=== PATIENT | female | born 1945 | race Caucasian/White ===

== ENCOUNTER 2022-01-12 13:06 | Inpatient (IN) | payer MEDICARE, MEDICAID ==
[~2022-01-12] VITALS: Ht 182.9 cm; Wt 61.2 kg
[2022-01-12] MEDS ORDERED: SODIUM CHLORIDE 0.9% 1000ML BAG (SEPSIS BOLUS) IV ONE (13:45)
[2022-01-12 13:51] LABS: BASOPHILS % 0.2 % (0.0-2.0); HEMATOCRIT. 33.4 % (36.0-48.0); LYMPHOCYTES % 20.6 % (20.0-50.0); MEAN CORPUSCULAR HEMOGLOBIN 33.2 pg (28.0-32.0); MEAN CORPUSCULAR VOLUME 100.3 fL (81.0-99.0); MEAN PLATELET VOLUME 8.5 fl (7.4-10.4); MONOCYTES % 7.7 % (2.0-8.0); NEUTROPHILS % 71.5 % (40.0-76.0); PLATELET 234 x1000/uL (130-400); RED BLOOD CELL COUNT 3.33 mill/uL (4.2-5.4); RED CELL DISTRIBUTION WIDTH 15.1 % (11.6-14.6)
[2022-01-12 14:02] LABS: INR 1.1; PROTHROMBIN TIME 11.4 sec (9.6-11.0)
[2022-01-12 14:11] LABS: CHLORIDE 93 mEq/L (98-107)
[2022-01-12 14:24] LABS: CLARITY URINE CLEAR (CLEAR); COLOR URINE YELLOW (YELLOW); KETONES URINE NEGATIVE (NEGATIVE); LEUKOCYTE ESTERASE URINE 2+ (NEGATIVE); NITRITE URINE NEGATIVE (NEGATIVE); OCCULT BLOOD URINE 3+ (NEGATIVE); PH URINE 5.5 (4.5-8.0); PROTEIN URINE NEGATIVE (NEGATIVE); SPECIFIC GRAVITY URINE 1.019 (1.005-1.030); UROBILINOGEN URINE 0.2 E.U./dL (0.2-1.0)
[2022-01-12] MEDS ORDERED: PANTOPRAZOLE 80 MG in SODIUM CHLORIDE 0.9% 100 ML IV SCH (15:14)
[2022-01-12] MEDS ORDERED: PANTOPRAZOLE SODIUM 40 MG/VIAL IV NR (15:14)
[2022-01-12] MEDS ORDERED: CEFTRIAXONE 2 G PREMIX 50 ML IV ONE (15:15)
[2022-01-12] MEDS ORDERED: CEFTRIAXONE 2 G in DEXTROSE 5% WATER 50 ML IV SCH (15:30)
[2022-01-12 17:32] LABS: HEMATOCRIT 30.7 % (36.0-48.0); HEMOGLOBIN 10.1 g/dL (12.0-16.0); MEAN CORPUSCULAR HEMOGLOBIN 33.2 pg (28.0-32.0); MEAN CORPUSCULAR VOLUME 100.9 fL (81.0-99.0); PLATELET 181 x1000/uL (130-400); RED BLOOD CELL COUNT 3.04 mill/uL (4.2-5.4); RED CELL DISTRIBUTION WIDTH 15.2 % (11.6-14.6)
[2022-01-12 20:00] VITALS: BP 144/94
[2022-01-12 21:53] VITALS: BP 144/94
[2022-01-12] MEDS ORDERED: ACETAMINOPHEN 325MG TABLET PO PRN (22:15)
[2022-01-12] MEDS ORDERED: HYDROCODONE/ACETAMINOPHEN 5/325MG TABLET PO PRN (22:15)
[2022-01-12] MEDS ORDERED: LOSA100T32 PO (22:22)
[2022-01-12] MEDS ORDERED: HYDR25TA PO (22:22)
[2022-01-12] MEDS ORDERED: DONE5TAB33 PO (22:22)
[2022-01-12] MEDS ORDERED: VERA240T94 PO (22:22)
[2022-01-13] VITALS: BP 150/80
[2022-01-13] MEDS: PANTOPRAZOLE 80 MG in SODIUM CHLORIDE 0.9% 100 ML IV SCH ×3 (00:36→20:13)
[2022-01-13] MEDS: LOSARTAN POTASSIUM 100 MG TABLET PO SCH ×2 (00:36→08:35)
[2022-01-13] MEDS: DEXT 5%/0.45% NACL KCL 20MEQ/L 1,000 ML IV SCH ×3 (00:37→20:13)
[2022-01-13 04:00] VITALS: BP 140/59
[2022-01-13 07:47] LABS: BASOPHILS % 0.3 % (0.0-2.0); EOSINOPHILS % 0.3 % (0.0-5.0); HEMATOCRIT. 24.9 % (36.0-48.0); HEMOGLOBIN. 8.4 g/dL (12.0-16.0); LYMPHOCYTES % 36.9 % (20.0-50.0); MEAN CORPUSCULAR HEMOGLOBIN 33.7 pg (28.0-32.0); MEAN CORPUSCULAR VOLUME 99.7 fL (81.0-99.0); MEAN PLATELET VOLUME 8.6 fl (7.4-10.4); MONOCYTES % 9.6 % (2.0-8.0); NEUTROPHILS % 52.9 % (40.0-76.0); PLATELET 186 x1000/uL (130-400); RED BLOOD CELL COUNT 2.49 mill/uL (4.2-5.4); RED CELL DISTRIBUTION WIDTH 14.9 % (11.6-14.6)
[2022-01-13 08:00] VITALS: BP 146/62
[2022-01-13 08:12] LABS: CHLORIDE 102 mEq/L (98-107)
[2022-01-13 08:20] LABS: TOTAL IRON BINDING CAPACITY 260 ug/dL (250-450)
[2022-01-13] MEDS: DONEPEZIL HCL 5MG TABLET PO SCH (08:35)
[2022-01-13] MEDS: VERAPAMIL HCL 120MG TABLET PO SCH (08:36)
[2022-01-13 08:40] LABS: VITAMIN B12 SERUM 799 pg/mL (211-911)
[2022-01-13 08:48] LABS: FOLIC ACID (FOLATE) SERUM > 20.00 ng/mL (>5.38)
[2022-01-13 11:52] LABS: FERRITIN 94 ng/mL (10-291)
[2022-01-13 12:00] VITALS: BP 141/60
[2022-01-13 16:00] VITALS: BP 127/57
[2022-01-13] MEDS ORDERED: CEFTRIAXONE 1,000 MG in DEXTROSE 5% WATER 50 ML IV SCH (16:00)
[2022-01-13] MEDS ORDERED: BISACODYL 5MG TABLET PO PRN (18:30)
[2022-01-13] MEDS ORDERED: BISACODYL 5MG TABLET PO NR ×2 (18:30→22:30)
[2022-01-13] MEDS ORDERED: METOCLOPRAMIDE HCL 10MG/2ML VIAL IV NR ×2 (18:30→22:30)
[2022-01-13] MEDS ORDERED: SORBITOL 70% SOLN 30ML PO NR ×2 (19:00→23:00)
[2022-01-13 20:23] VITALS: BP 170/69
[2022-01-14] MEDS ORDERED: HYDRALAZINE 20MG/ML VIAL IV PRN (00:15)
[2022-01-14 00:26] VITALS: BP 188/94
[2022-01-14 04:00] VITALS: BP 150/64
[2022-01-14] MEDS: DEXT 5%/0.45% NACL KCL 20MEQ/L 1,000 ML IV SCH (05:08)
[2022-01-14] MEDS: PANTOPRAZOLE 80 MG in SODIUM CHLORIDE 0.9% 100 ML IV SCH (05:08)
[2022-01-14 07:04] LABS: BASOPHILS % 0.3 % (0.0-2.0); HEMATOCRIT. 26.5 % (36.0-48.0); HEMOGLOBIN. 8.7 g/dL (12.0-16.0); LYMPHOCYTES % 13.4 % (20.0-50.0); MEAN CORPUSCULAR HEMOGLOBIN 32.9 pg (28.0-32.0); MEAN CORPUSCULAR VOLUME 100.4 fL (81.0-99.0); MEAN PLATELET VOLUME 8.2 fl (7.4-10.4); MONOCYTES % 8.9 % (2.0-8.0); NEUTROPHILS % 77.4 % (40.0-76.0); PLATELET 203 x1000/uL (130-400); RED BLOOD CELL COUNT 2.64 mill/uL (4.2-5.4); RED CELL DISTRIBUTION WIDTH 15.3 % (11.6-14.6)
[2022-01-14 07:31] LABS: CHLORIDE 113 mEq/L (98-107)
[2022-01-14 08:00] VITALS: BP 137/69
[2022-01-14] MEDS: DONEPEZIL HCL 5MG TABLET PO SCH (09:00)
[2022-01-14] MEDS: LOSARTAN POTASSIUM 100 MG TABLET PO SCH (09:00)
[2022-01-14] MEDS ORDERED: SODIUM CHLORIDE 0.9% 250 ML IV ONE (09:45)
[2022-01-14] MEDS ORDERED: NALOXONE HCL 0.4MG/ML VIAL IV PRN (10:00)
[2022-01-14] MEDS: VERAPAMIL HCL 120MG TABLET PO SCH (10:29)
[2022-01-14 12:00] VITALS: BP 123/64
[2022-01-14] MEDS ORDERED: PROPOFOL 200MG/20ML VIAL IV ONE (14:04)
[2022-01-14] MEDS ORDERED: DEXAMETHASONE 4MG/ML 1ML VIAL ONE (14:04)
[2022-01-14] MEDS ORDERED: ONDANSETRON HCL 4MG/2ML INJ ONE (14:04)
[2022-01-14] MEDS ORDERED: MIDAZOLAM HCL 2 MG/2 ML VIAL ONE (14:05)
[2022-01-14] MEDS ORDERED: FENTANYL CITRATE/PF 50MCG/ML 2ML VIAL ONE (14:08)
[2022-01-14 16:30] VITALS: BP 144/69
[2022-01-14] MEDS ORDERED: SUCR1TAB30 PO (16:59)
[2022-01-14] MEDS ORDERED: OMEP40CA20 MT (16:59)
[2022-01-14 17:27] VITALS: BP 135/68
[2022-01-14] MEDS ORDERED: SUCRALFATE 1G TABLET PO SCH (17:40)
[2022-01-14] MEDS ORDERED: PANTOPRAZOLE SODIUM 40 MG/VIAL IV SCH (21:00)
== END 2022-01-14 19:00 | disposition home or self-care (01) | DRG 378 ==
LOC: ER 13:06 → 7WST 18:05 → ENRESERV 19:08
PROVIDERS: ADMIT Internal Medicine; ATTEND Internal Medicine
PROC: 0DB78ZX Excision of Stomach, Pylorus, Via Natural or Artificial Opening Endoscopic, Diagnostic (ICD-10-PCS; principal; 2022-01-14)
PROC: 0D758ZZ Dilation of Esophagus, Via Natural or Artificial Opening Endoscopic (ICD-10-PCS; 2022-01-14)
PROC: 0DJD8ZZ Inspection of Lower Intestinal Tract, Via Natural or Artificial Opening Endoscopic (ICD-10-PCS; 2022-01-14)
DX: K25.4 Chronic or unspecified gastric ulcer with hemorrhage (principal); E87.1 Hypo-osmolality and hyponatremia; N39.0 Urinary tract infection, site not specified; G90.8 Other disorders of autonomic nervous system; K29.71 Gastritis, unspecified, with bleeding; D53.9 Nutritional anemia, unspecified; E87.8 Other disorders of electrolyte and fluid balance, not elsewhere classified; M19.90 Unspecified osteoarthritis, unspecified site; Z20.822 Contact with and (suspected) exposure to COVID-19; F03.90 Unspecified dementia, unspecified severity, without behavioral disturbance, psychotic disturbance, mood disturbance, and anxiety; I10 Essential (primary) hypertension; K22.2 Esophageal obstruction; K57.31 Diverticulosis of large intestine without perforation or abscess with bleeding; Z79.899 Other long term (current) drug therapy
CPT/HCPCS: 36415; 71045; 74176; 76700; 80048; 80053; 81003; 82270; 82607; 82728; 82746; 83540; 83550; 83605; 84484; 85025; 85027; 86850; 86900; 87426; 88305; 88312; 88313; 93005; 99291; C9113; J0360; J0696; J1100; J2250; J2405; J2704; J2765; J3010; J7030; J7040; J7050; J7060